=== PATIENT | female | born 2000 | race Two or more races ===

== ENCOUNTER 2022-03-13 03:19 | Inpatient (IN) | payer OTHER ==
[~2022-03-13] VITALS: Ht 170.2 cm; Wt 77.3 kg
[2022-03-13] MEDS ORDERED: OMEGA 3 1,0001 EACH PO (03:37)
[2022-03-13] MEDS ORDERED: IRON236 MG PO (03:37)
[2022-03-13] MEDS ORDERED: CRESTOR20 MG PO (03:37)
[2022-03-14] MEDS ORDERED: MOTRIN IB200 MG PO (10:44)
[2022-03-14] MEDS ORDERED: PEPCID AC20 MG PO (10:44)
== END 2022-03-14 11:36 | disposition home or self-care (01) | DRG 343 ==
LOC: EMR PED 03:19 → PED 10:08
PROVIDERS: Surgery; ADMIT Emergency Medicine; ATTEND Emergency Medicine
PROC: BW21Y0Z Computerized Tomography (CT Scan) of Abdomen and Pelvis using Other Contrast, Unenhanced and Enhanced (ICD-10-PCS; 2022-03-13)
PROC: 0DTJ4ZZ Resection of Appendix, Percutaneous Endoscopic Approach (ICD-10-PCS; principal; 2022-03-13 10:00)
DX: K35.890 Other acute appendicitis without perforation or gangrene (principal); Z20.822 Contact with and (suspected) exposure to COVID-19